=== PATIENT | male | born 1960 | race Caucasian/White ===

== ENCOUNTER 2016-06-11 04:22 | Inpatient (IN) ==
[2016-06-11] MEDS ORDERED: DILAUDID IV ONE ×2 (04:44→08:04)
[2016-06-11] MEDS ORDERED: ZOFRAN IV ONE (04:44)
[2016-06-11] MEDS ORDERED: NS 1,000 ML IV SCH (04:45)
--- NOTE | 2016-06-11 05:02 | PROVIDER DOCUMENTATION ---
HPI-Abdominal Pain/GI Problem - General Source: patient - History of Present Illness-ABD Nature of Presenting Problems: 55 YO wm UNDERWENT [employer] APPY for ruptured appendix on 06/06. He was awakened from sleep around 3 am with lower abdominal pain and bloody mucoid diarrhea. He has a history of ulcerative colitis which has been well controlled on current meds Abdominal Pain Onset Location: reports: periumbilical Pain Radiation: reports: no radiation Quality of Pain: reports: burning Onset/Duration: reports: abrupt, 1 hour ago Timing: reports: still present Activities at Onset: reports: sleep Exposure to sick contacts?: No Modifying Factors: improves with: nothing Last BM: 24 hours ago Dark Stools Present?: reports: bright red blood Rectal Bleeding: reports: bleeding without stool # of Diarrhea Episodes: 3 # of Vomiting Episodes: 0 Bruising or Bleeding Gums?: No Similar Symptoms Previously?: No Recently seen or treated by another doctor?: Yes (Dr. Guadalupe) <Bear López - Last Filed: 06/11/16 04:56> <Lilia Cabrera - Last Filed: 06/11/16 06:29> - General Chief Complaint: Rectal Bleeding Stated Complaint: ABD PAIN Time Seen by Provider: 06/11/16 04:26 Allergies/Adverse Reactions: Patient Allergies Allergy/AdvReac Type Severity Reaction Status Date / Time No Known Allergies Allergy Verified 06/11/16 04:59 Home Medications: Home Medication List Medication Instructions Recorded Confirmed Last Taken Type Ibuprofen [Advil Migraine] 400 mg PO DAILY 06/06/16 06/11/16 06/10/16 History Mesalamine [Apriso] 4 tab PO DAILY 06/06/16 06/11/16 06/10/16 History Hydrocodone/APAP 10 mg/325 mg 1 each PO Q4H PRN PRN #14 tablet 06/07/1606/10/16 Rx [Unity-10] Review of Systems - Adult - REVIEW OF SYSTEMS - ADULT Eyes: reports: no symptoms reported Ears, Nose, Mouth & Throat: reports: no symptoms reported Cardiovascular: reports: no symptoms reported Respiratory: reports: no symptoms reported Gastrointestinal: reports: see HPI Genitourinary: reports: no symptoms reported Musculoskeletal: reports: no symptoms reported Neurological: reports: no symptoms reported Psychiatric: reports: no symptoms reported Endocrine: reports: no symptoms reported Hematologic/Lymphatic: reports: no symptoms reported Allergic/Immunologic: reports: no symptoms reported <Bear López - Last Filed: 06/11/16 04:56> - REVIEW OF SYSTEMS - ADULT Constitutional: reports: no symptoms reported. denies: fever, fatique Eyes: reports: no symptoms reported <Lilia Cabrera - Last Filed: 06/11/16 06:29> Past History - Adult - PAST MEDICAL HISTORY-ADULT Major Childhood Illnesses: reports: denies history Cardiovascular: reports: denies history Respiratory: reports: denies history Gastrointestinal: reports: colitis Obstetrical/Gynecological: reports: denies history Genitourinary: reports: denies history Musculoskeletal: reports: denies history Neurological: reports: denies history Endocrine/Immune: reports: denies history Other Conditions: reports: denies history <Bear López - Last Filed: 06/11/16 04:56> - PAST MEDICAL HISTORY-ADULT Review of Records: reports: Old Records Reviewed, Nursing Assessment Review, Medications Reviewed, Social history reviewed & non-contributory. <Lilia Cabrera - Last Filed: 06/11/16 06:29> Physical Exam-General - PHYSICAL EXAM-ADULT Initial Vital Signs Reviewed: Yes - CONSTITUTIONAL General Appearance: mild distress - EYES Eyes: PERRL/EOMI, pink conjunctivae - HEAD, EARS, NOSE, MOUTH & THROAT HENMT: normocephalic/atraumatic, moist mucous membranes - NECK Neck: non-tender - RESPIRATORY Respiratory: chest non-tender, lungs clear - CARDIOVASCULAR Cardiovascular: normal peripheral pulses, regular rate, rhythm, no edema - GASTROINTESTINAL (ABDOMEN) Abdominal Exam: normal bowel sounds, guarding, tenderness, mass, hepatomegaly, spleenomegaly - GENITOURINARY Rectal Exam: normal exam, normal rectal tone Hemoccult Exam: heme positive stool - LYMPHATIC Lymphatic: no adenopathy - MUSCULOSKELETAL Back Exam: normal inspection Extremity: normal range of motion Peripheral Pulses: radial (R): 3+, radial (L): 3+ - SKIN Integumentary: normal color, normal turgor, other (obvious macular rash on lower abdomen due to op site) - NEUROLOGIC Neurologic: grossly normal - PSYCHIATRIC Psych/Mental Status: normal mood/affect <Bear López - Last Filed: 06/11/16 04:56> Progress - PLAN OF CARE/RESULTS Progress/Plan/Lab Results: Orders Category Date Time Status CT ABD/PELVIS W/ IV CONT ONLY [CT] Stat Exams 06/11/16 04:54 Taken CBC WITH DIFF [HEME] Stat Lab 06/11/16 04:39 Completed COMPREHENSIVE METABOLIC PANEL [CHEM] Stat Lab 06/11/16 04:39 Completed 0.9% Sodium Chloride Inj [Ns] 1,000 ml Med 06/11/16 04:45 Active IV 250 mls/hr Hydromorphone [Dilaudid] Med 06/11/16 04:44 Discontinued 1 mg IV NOW ONE Ondansetron [Zofran] Med 06/11/16 04:44 Discontinued 4 mg IV NOW ONE Orders Category Date Time Status CT ABD/PELVIS W/ IV CONT ONLY [CT] Stat Exams 06/11/16 04:54 Taken CBC WITH DIFF [HEME] Stat Lab 06/11/16 04:39 Completed COMPREHENSIVE METABOLIC PANEL [CHEM] Stat Lab 06/11/16 04:39 Completed 0.9% Sodium Chloride Inj [Ns] 1,000 ml Med 06/11/16 04:45 Active IV 250 mls/hr Hydromorphone [Dilaudid] Med 06/11/16 04:44 Discontinued 1 mg IV NOW ONE Ondansetron [Zofran] Med 06/11/16 04:44 Discontinued 4 mg IV NOW ONE Vital Signs Temp Pulse Resp BP Pulse Ox 06/11/16 05:59 60 17 184/101 98 06/11/16 04:25 99.2 F 60 22 185/108 100 No Known Allergies Allergy (Verified 06/11/16 04:59) Ibuprofen [Advil Migraine] 400 mg PO DAILY 06/06/16 Mesalamine [Apriso] 4 tab PO DAILY 06/06/16 Hydrocodone/APAP 10 mg/325 mg [Unity-10] 1 each PO Q4H PRN PRN #14 tablet Laboratory 06/11/16 06/11/16 04:39 04:39 WBC 9.51 RBC 4.50 L Hgb 15.3 Hct 43.1 MCV 95.8 MCH 34.0 H MCHC 35.5 RDW Std Deviation 11.6 Plt Count 244 MPV 10.6 H Immature Gran % (Auto) 0.2 Neut % (Auto) 82.6 H Lymph % (Auto) 7.3 L [place] % (Auto) 8.7 Eos % (Auto) 0.9 Baso % (Auto) 0.3 Immature Gran # (Auto) 0.02 Neut # (Auto) 7.85 H Lymph # (Auto) 0.69 L [place] # (Auto) 0.83 H Eos # (Auto) 0.09 Baso # (Auto) 0.03 Sodium 137 Potassium 4.4 Chloride 94 L Carbon Dioxide 32 Anion Gap 11 BUN 28 H Creatinine 1.4 H Estimated GFR/1.73 m2 53 BUN/Creatinine Ratio 20 Glucose 171 H Calculated Osmolality 283 Calcium 9.1 Total Bilirubin 1.35 H AST 17 ALT 21 Alkaline Phosphatase 71 Total Protein 6.9 Albumin 4.2 Globulin 2.7 Albumin/Globulin Ratio 1.6 - CONSULTS/PCP/HOSPITALIST Notification Time Discussed: 06:26 Consult Disposition: other (Consulted Dr. Mullins, suggested admit and consult GI. Will admit to Dr. Elkins.) <Lilia Cabrera - Last Filed: 06/11/16 06:29> Departure <Bear López - Last Filed: 06/11/16 04:56> - Departure Time of Disposition Order: 06:27 Certified Medical Emergency: Emergent <Lilia Cabrera - Last Filed: 06/11/16 06:29> - Departure DIAGNOSIS: Lower GI bleed, Post-op pain Post-op bleeding Qualifiers: Surgical complication system/body Area: digestive system Procedure type: digestive system Qualified Code(s): K91.840 - Postprocedural hemorrhage of a digestive system organ or structure following a digestive system procedure Disposition: ADMITTED INPATIENT 09 Condition: Stable Physician Attestation
[2016-06-11 05:32] LABS: ALBUMIN 4.2 g/dL (3.5-5.0); CALCIUM 9.1 mg/dL (8.8-10.2); POTASSIUM 4.4 mmol/L (3.5-5.1); TOTAL BILIRUBIN 1.35 mg/dL (0.20-1.00); TOTAL PROTEIN 6.9 g/dL (6.3-8.3)
[2016-06-11 05:58] LABS: MANUAL DIFF NEEDED? NO
[2016-06-11 06:01] LABS: BASO% 0.3 % (0.0-0.8); EOS# 0.09 X1000 (0.0-0.7); EOS% 0.9 % (0.0-10.0); HEMATOCRIT 43.1 % (42.0-52.0); HEMOGLOBIN 15.3 g/dL (14.0-18.0); IMM GRAN# 0.02 X1000 (0.0-0.04); IMM GRAN% 0.2 % (0.0-0.5); LYMPH# 0.69 X1000 (1.2-3.4); LYMPH% 7.3 % (20.5-51.1); MCHC 35.5 g/dL (33-37); MCV 95.8 FL (81-99); MONO# 0.83 X1000 (0.11-0.59); MONO% 8.7 % (1.7-9.3); MPV 10.6 FL (7.4-10.4); NEUT% 82.6 % (42.2-75.2); PLT 244 X1000 (130-400)
[2016-06-11] MEDS ORDERED: LEVAQUIN 750 MG/D5W 150 ML IV ONE (07:27)
[2016-06-11] MEDS ORDERED: FLAGYL 500 MG/NS 100 ML IV ONE (07:27)
--- NOTE | 2016-06-11 07:41 | Diag Imaging Result Document ---
PROCEDURE NAME: CT ABD/PELVIS W/ IV CONT ONLY - 06/11/2016 CT OF THE ABDOMEN WITH INTRAVENOUS CONTRAST: FINDINGS: There is slight dependent atelectasis in the lung bases. There is no evidence of abdominal aortic aneurysm. The mesenteric and renal arteries are patent. There is some inflammation around the umbilicus which was not present at the time of the previous study of 06/06/2016. This is probably post surgical in origin. There is mild pericolic inflammation around the descending colon. The spleen, adrenal glands, liver, and pancreas are normal in appearance. The kidneys are without evidence of hydronephrosis or mass. Since the previous study, there has been appendectomy. CT of the pelvis with intravenous contrast. There is a small amount of fluid in the rectovesical pouch. There is no evidence of abscess. The regional skeleton is stable in appearance. IMPRESSION: 1. Postsurgical changes. 2. Nonspecific free pelvic fluid. 3. The possibility of mild left-sided colitis cannot be excluded. This was not apparent at the time of the previous study of 06/06/2016. The additional findings were discussed with Dr. Mike at 0725 hours by telephone.
[2016-06-11] MEDS ORDERED: SODIUM CHLORIDE 0.9% INJ SCH (10:00)
--- NOTE | 2016-06-11 10:35 | HISTORY AND PHYSICAL ---
CHIEF COMPLAINT: Abdominal pain and rectal bleeding. HISTORY OF PRESENT ILLNESS: Mr. Tobar is a 55-year-old male with a history of ulcerative colitis with no recent flares and a recent appendectomy 3 days ago at our facility by Dr. Bear Guadalupe. He states that yesterday evening he had acute onset of abdominal pain, which he called sharp and cramping in nature and constant, and soon followed by multiple bloody bowel movements of bright red blood. The pain worsened overnight, and he came to the ER for evaluation. In the ER, he had labs and diagnostics done. He had a mild left-sided colitis, but otherwise nothing acute. The postsurgical changes were noted, but those were all normal and expected changes. He reports subjective fever, chills, and diaphoresis and 1 episode of vomiting. When he came to the ER, his labs showed normal white count, mild renal insufficiency, and hyperglycemia. He has had blood cultures, and Levaquin and Flagyl have been started. We are going to now admit him for further treatment and evaluation. PAST MEDICAL HISTORY: 1. Ulcerative colitis. 2. Recent appendectomy. PAST SURGICAL HISTORY: Appendectomy. SOCIAL HISTORY: The patient quit smoking and drinking multiple years ago. He denies any recent use of tobacco, alcohol, or drugs. He is single. 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 FAMILY HISTORY: Mother with throat cancer. Father alive with a history of hypertension. REVIEW OF SYSTEMS: A 14-point review of systems was obtained and found to be negative with the exception of the HPI. ALLERGIES: No known drug allergies. HOME MEDICATIONS: Advil 400 mg daily, mesalamine 0.375 gram capsule 4 capsules daily, [place] 10 as needed for pain. PHYSICAL EXAMINATION: VITAL SIGNS: Blood pressure is 169/85, heart rate 58, respiratory rate 16, and O2 saturation 100% on room air. Temperature is 98.4 degrees. GENERAL: A well-developed, well-nourished male, lying in the hospital bed, and in no acute distress. NEUROLOGIC: Awake, alert, and oriented. Follows commands without focal deficits. HEENT AND NECK: Head is atraumatic, normocephalic. Pupils equal, round, reactive to light. Oral mucosa is moist. Trachea is midline. No JVD or carotid bruits. CHEST: Clear to auscultation bilaterally. CARDIOVASCULAR: Regular rate and rhythm. S1 and S2 are noted. No murmurs, gallops, clicks, or rubs. GASTROINTESTINAL: Left lower quadrant pain and tenderness to palpation. Belly is soft and nondistended. Hypoactive bowel sounds are noted. EXTREMITIES: Without edema, clubbing, or cyanosis. Pulses are palpable bilaterally. DIAGNOSTIC DATA: Abdomen and pelvis CT shows postsurgical changes. Nonspecific free pelvic fluid. Mild left-sided colitis, which was not apparent on 06/06/2016. Sodium 137, potassium 4.4, chloride 94, CO2 of 32, anion gap 11, BUN 28, creatinine 1.4, glucose 171, calcium 9.1, bilirubin 1.25, AST 17, ALT 21, alkaline phosphatase 71. CRP is 5.9, albumin 2.7. WBC 9.5, hemoglobin 15.3, hematocrit 43.1, platelet count 244,000. ASSESSMENT AND PLAN: 1. Colitis: Likely ulcerative colitis flare, however, we are going to obtain a full set of stool studies and consult gastrointestinal. We will keep the patient nothing by mouth, add pain medication and intravenous fluids, add Levaquin and Flagyl as well. 2. Kidney injury: Likely prerenal. We will hold the patient nothing by mouth and continue intravenous fluids. Monitor renal function daily. 3. Recent appendectomy: Stable. CT does not show anything acute regarding this. We will monitor. 4. Gastrointestinal prophylaxis with Protonix. Deep vein thrombosis prophylaxis with sequential compression devices and TEDs given his gastrointestinal bleeding. 5. Further recommendations to follow. Dictated by ELISA Mcintyre for Jaguar Smith MD
[2016-06-11] MEDS: LEVAQUIN 500 MG/D5W 100 ML IV SCH (10:40)
[2016-06-11] MEDS: NS 1,000 ML IV SCH ×2 (12:42→17:34)
[2016-06-11] MEDS: PROTONIX IV SCH (12:47)
[2016-06-11] MEDS: MORPHINE IV PRN ×2 (12:48→17:35)
[2016-06-11] MEDS: FLAGYL 500 MG/NS 100 ML IV SCH ×2 (13:15→20:06)
[2016-06-11] MEDS: TYLENOL PO PRN (20:44)
[2016-06-12] MEDS: MORPHINE IV PRN (00:51)
[2016-06-12] MEDS: FLAGYL 500 MG/NS 100 ML IV SCH ×4 (00:51→21:55)
[2016-06-12] MEDS: NS 1,000 ML IV SCH ×3 (03:16→11:49)
[2016-06-12] MEDS ORDERED: NORCO-7.5 PO PRN (04:06)
[2016-06-12 06:29] LABS: HEMATOCRIT 40.5 % (42.0-52.0); HEMOGLOBIN 13.8 g/dL (14.0-18.0); MCH 33.9 PG (27-31); MCHC 34.1 g/dL (33-37); MCV 99.5 FL (81-99); MPV 10.7 FL (7.4-10.4); RBC 4.07 XMIL (4.7-6.1)
[2016-06-12 06:51] LABS: CALCIUM 8.4 mg/dL (8.8-10.2); POTASSIUM 4.3 mmol/L (3.5-5.1)
[2016-06-12] MEDS: LEVAQUIN 500 MG/D5W 100 ML IV SCH (09:44)
[2016-06-12] MEDS: PROTONIX IV SCH (09:45)
--- NOTE | 2016-06-12 12:10 | PROGRESS NOTE ---
DATE: 06/12/2016 SUBJECTIVE: This patient states that he is feeling much better. The abdominal pain decreased. He is having bowel movement, but compared with the admission is not that bloody. He has been noticing just mild amount of blood. We will continue with the same treatment. He is he is on Levaquin and Flagyl. Objective: t: 97.8, P: 54, RR: 20, BP: 140/87 HEENT: normocephalic, no trauma, perrl, Neck: supple, no JVD, Chest: clear, no wheezing no rales, abdomen: soft mild tender to palpation LLQ, Extremities: no edema, no clubbing, no cyanosis, Neurological: alert and oriented X3. ASSESSMENT AND PLAN: 1. Acute kidney injury, likely prerenal. This is getting better. The creatinine improved from 1.4 to 1.3. We will continue to monitor. We will continue with IV fluids. 2. Recent appendectomy, stable. CT of the abdomen did not show anything acute regarding this. We will continue to monitor. His abdomen is soft. 3. GI prophylaxis with Protonix. 4. DVT prophylaxis. SCDs. [facility]
[2016-06-12] MEDS: TYLENOL PO PRN (17:18)
[2016-06-12] MEDS: CULTURELLE PO SCH (21:55)
--- NOTE | 2016-06-12 22:02 | CONSULTATION ---
DATE OF CONSULTATION: 06/12/2016 REASON FOR CONSULTATION: Rectal bleeding and history of ulcerative colitis. HISTORY OF PRESENT ILLNESS: Mr. Tobar 55-year-old male who was admitted on 06/11 with abdominal pain in the periumbilical region and left lower quadrant and right lower quadrant cramping in nature and constant followed by multiple bloody bowel movements containing bright red blood. He has a history of ulcerative colitis diagnosed 3 years ago at [facility]. At that time was put on mesalamine 4 capsules daily. (I think he was on Apriso 1.5 g daily). Since that diagnosis he has not being followed up at [facility] as he lost his [facility]. He recently had appendectomy done by Dr. Guadalupe on 06/06/2016. He had a CT scan on this admission which showed mild left-sided colitis and some postsurgical changes, nonspecific free pelvic fluid. Since admission he was put on IV antibiotics Levaquin, Flagyl, continues to have diarrhea. Today he has so far 3 liquid bloody stools and according to him it is slowing down, the amount of blood is also slowing down. PAST MEDICAL HISTORY: 1. ulcerative colitis left-sided diagnosed 3 years ago at [facility] in [place] currently on Apriso 1.5 g every day. 2. Recent appendectomy on 06/06/2016 Dr. Guadalupe . PAST SURGICAL HISTORY: Appendectomy on 06/06/2016 Dr. Guadalupe. SOCIAL HISTORY: He quit smoking and drinking multiple years ago. He has 1 child. 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 He is single. FAMILY HISTORY: Mother with throat cancer. Father history of hypertension. REVIEW OF SYSTEMS: Denies any fevers, rigors, chills, chest pain, shortness of breath, dyspnea. Denies any neurologic complaints or genitourinary complaints. Denies history of vomiting blood or passing black stools. Denies history of use of NSAIDs ALLERGIES: No known drug allergies. MEDICATIONS AT HOME: Advil 400 mg daily, mesalamine 1.5 g every day and in the form Apriso I think, [place] 10 mg as needed for pain. MEDICATIONS IN THE HOSPITAL: Include Tylenol hydrocodone/acetaminophen, Flagyl , Levaquin, IV fluids 125 per hour, Protonix IV once daily. He is currently on GI soft diet. OBJECTIVE: Vital signs: Temperature 98.6, pulse of 75, respiratory rate 16, blood pressure 145/95, saturating 98% on room air, body weight of 161 pounds, BMI 22.5 kg meter squared. General appearance: Moderately built, moderately nourished lying in bed in no acute distress. HEENT: Mild pallor. No icterus. Pupils equal, react to light. Neck: Supple. Chest: Decreased breath sounds at the bases. Cardiac: Regular rhythm. Abdomen: Mild discomfort left lower quadrant. No rebound. No guarding. Bowel sounds and no hepatosplenomegaly. Extremities: No cyanosis, clubbing, edema. Neuro: Alert, awake, oriented. LABS: Hemoglobin and hematocrit is 13.8 and 40.5, white count of 14.39, platelet count of 192,000, MCV of 99.5. Sodium 141, potassium 4.3, chloride 103, bicarb 27, anion gap 11, BUN of 16, creatinine 1, glucose of 134, calcium is 8.4, total bilirubin is 1.35, AST 17, ALT 21, alkaline phosphatase 71, total protein 6.9, albumin of 4.2, CRP 5.9, sedimentation rate of 7. CT scan of the abdomen and pelvis on 06/11/2016 showed poor surgical changes, nonspecific free pelvic fluid, possibility of mild left-sided colitis cannot be excluded. This was not apparent on previous study on 06/06/2016 and his appendectomy was done on 06/06/[address] Guadalupe. IMPRESSION AND PLAN: 1. Left-sided colitis and bloody diarrhea and abdominal pain, mild anemia with a known history of ulcerative colitis diagnosed 3 years ago at [facility] in [place] and patient is status post appendectomy from 06/06/[address] Guadalupe. I believe he is having a flare up of ulcerative colitis. His stool studies are negative for Clostridium difficile toxin and antigen. His stool for Hemoccult was positive. His ova and parasite studies are negative. His stool culture is currently pending and stool for white cells is moderate. In this regard we will continue patient on Levaquin, Flagyl, IV fluids. We will start him on Solu- Medrol 40 mg IV once daily and on discharge will transition him to prednisone 40 mg for 5 days followed by 30 mg for 5 days followed by 20 mg for 5 days and then 10 mg for 5 days and then discontinue. 2. Will also schedule him for flexible sigmoidoscopy/colonoscopy on Tuesday depending on his clinical status. The patient's rectal bleeding slowing down. Will follow along and follow blood counts. 3. Patient is also to avoid any NSAIDs. We will start him on Protonix once daily and will also check [facility] IBD panel. 4. Above discussed with patient and all questions. GIANLUCA
[2016-06-13] MEDS: FLAGYL 500 MG/NS 100 ML IV SCH ×2 (03:52→08:30)
[2016-06-13 04:33] VITALS: BP 139/90
[2016-06-13] MEDS: NS 1,000 ML IV SCH ×3 (05:41→11:53)
[2016-06-13 06:36] LABS: HEMATOCRIT 38.1 % (42.0-52.0); HEMOGLOBIN 12.9 g/dL (14.0-18.0); MCH 33.9 PG (27-31); MCHC 33.9 g/dL (33-37); MCV 100.3 FL (81-99); MPV 10.6 FL (7.4-10.4); RBC 3.8 XMIL (4.7-6.1)
[2016-06-13 06:55] LABS: AGAP 9; BUN 12 mg/dL (8-22); CALCIUM 8.3 mg/dL (8.8-10.2); CHLORIDE 104 mmol/L (98-107); COSMO 281; POTASSIUM 4.1 mmol/L (3.5-5.1); SODIUM 141 mmol/L (136-145); TCO2 28 mmol/L (25-35)
[2016-06-13] MEDS: PROTONIX IV SCH (08:28)
[2016-06-13] MEDS: CULTURELLE PO SCH (08:29)
[2016-06-13] MEDS: LEVAQUIN 500 MG/D5W 100 ML IV SCH (08:30)
[2016-06-13] MEDS ORDERED: SOLU-MEDROL IV SCH (09:00)
[2016-06-13] MEDS ORDERED: FLAGYL PO SCH (14:00)
[2016-06-14] MEDS ORDERED: PROTONIX PO SCH (07:00)
[2016-06-14] MEDS ORDERED: PREDNISONE PO SCH (09:00)
[2016-06-14] MEDS ORDERED: LEVAQUIN PO SCH (09:00)
--- NOTE | 2016-06-14 17:34 | DISCHARGE SUMMARY ---
ADMISSION DATE: 06/11/2016 DISCHARGE DATE: 06/13/2016 DISCHARGE DIAGNOSES: 1. Left-sided colitis, bloody diarrhea and abdominal pain, likely related with ulcerative colitis flare. 2. Acute kidney injury. 3. Recent appendectomy. CONSULTATIONS: Dr. Greson Jack, Gastroenterology Department. HOSPITAL COURSE: A 55 years old male with a past medical history of recent appendectomy, ulcerative colitis, came to the emergency department and was admitted on 06/11/2016. He presented to the emergency department with abdominal pain in the periumbilical region and left lower quadrant and right lower quadrant, cramping in nature and constant, followed by multiple bloody bowel movements containing bright red blood. Like I mentioned before, he has history of ulcerative colitis diagnosed 3 years ago at [facility]. He was evaluated by Gastroenterology Department and they put this patient on steroids. Also this patient was placed on antibiotics, Levaquin and metronidazole, the patient was improving on a daily basis to the point that he is no longer having bloody bowel movement, no more abdominal pain. So we decided to discharge this patient with active follow up by his primary care doctor and follow up by Dr. Jack in 1 week to decide if this patient needs a new endoscopy. At the moment of discharge, this patient was in a stable medical condition, tolerating p.o. and ambulating. No abdominal pain. No bloody bowel movement. DISCHARGE EXAMINATION: Vital signs: Temperature 98.3 degrees, pulse 63, respiratory rate 22, blood pressure 139/90, O2 saturation 100% on room air. HEENT: Head normocephalic. No trauma. PERRLA. Neck: Supple. No JVD. No masses. Central trachea. Chest: Clear to auscultation. No wheezing. No rales. Abdomen: Soft, nontender, nondistended. No hepatosplenomegaly. Cardiovascular: Regular rhythm and rate. No murmurs. No gallops. No rubs. Extremities: No edema. No clubbing. No cyanosis. Neurological: Patient is alert and oriented x3. No focal neurological deficits. DISCHARGE MEDICATIONS: 1. Mesalamine 4 tablets p.o. daily. 2. [place] 10 one tablet p.o. q.4 hours p.r.n. pain. 3. Prednisone 40 mg p.o. daily for 5 days, and then 30 for 5 days, and then 20 for 5 days, then 10 for 5 days. 4. Pantoprazole 40 mg p.o. daily. 5. Flagyl 500 mg q.6 hours for 7 days. 6. Levofloxacin 500 mg p.o. daily for 7 days. 7. [place] 1 tablet p.o. b.i.d. FOLLOWUP: Followup by his primary care doctor in 1 week and followup by Dr. Jack in 1 week as well.
== END 2016-06-13 12:44 | disposition home or self-care (01) | DRG 386 ==
LOC: EDBD → SUPCPDRO 04:22 → ED 04:22 → 4N 08:05
PROVIDERS: ATTEND Internal Medicine
DX: K51.90 Ulcerative colitis, unspecified, without complications (principal); N17.9 Acute kidney failure, unspecified; R73.9 Hyperglycemia, unspecified; Z79.899 Other long term (current) drug therapy; Z87.891 Personal history of nicotine dependence; Z80.8 Family history of malignant neoplasm of other organs or systems; Z82.49 Family history of ischemic heart disease and other diseases of the circulatory system
CPT/HCPCS: 74177; 80048; 80053; 82270; 83735; 85025; 85027; 85651; 86140; 86255; 86671; 87045; 87046; 87177; 87324; 87449; 88313; 89055; 96361; 96365; 96375; 96376; C9113; J1170; J2270; J2405; J2920; J7030; Q9967; S0030; S0164